=== PATIENT | male | born 1985 | race Caucasian/White ===

== ENCOUNTER 2018-01-08 12:26 | Emergency (ER) | payer SELFPAY ==
[~2018-01-08] VITALS: Ht 172.7 cm; Wt 90.0 kg
[2018-01-08 12:30] VITALS: BP 146/98
== END 2018-01-08 15:10 | disposition left against medical advice (07) ==
LOC: ER 12:26
DX: R51 Headache (principal); Z53.21 Procedure and treatment not carried out due to patient leaving prior to being seen by health care provider